=== PATIENT | female | born 1940 | race Caucasian/White ===

== ENCOUNTER 2024-06-21 22:05 | Inpatient (IN) | payer MEDICARE, BC ==
--- NOTE | 2024-06-21 22:20 | ED ---
Chest Pain HPI - General Chief Complaint: Chest Pain Stated Complaint: NSTEMI Time Seen by Provider: 06/21/24 22:14 Source: patient, EMS Mode of arrival: EMS - History of Present Illness Initial Comments: This patient is an 83-year-old woman transferred here from [facility]. The patient had gone there to have evaluation for chest pain that she states started around 8 AM. She states that it was not related to any exertion she was still in bed. She states the pain radiates to the left shoulder. She denied any associated symptoms. She went to the other facility and was found to have elevated troponin and transferred here to have further evaluation. The patient states that the symptoms have improved since receiving the medication that they had given there. MD Complaint: chest pain Onset/Timin -: hour(s) Onset: during rest Pain Location: left chest Pain Radiation: LUE Severity: moderate Quality: aching Consistency: now resolved Improves With: medication-other Worsens With: nothing Treatments Prior to Arrival: aspirin, oxygen, other - Related Data Home Medications Medication Instructions Recorded Confirmed ALPRAZolam [Xanax] 0.5 mg PO BID PRN 06/22/24 06/22/24 Alendronate Sodium 70 mg PO WEEKLY 06/22/24 06/22/24 Azelastine HCl [Astelin Nasal 1 spr EA NOSTRIL BID 06/22/24 06/22/24 [place]] Betamethasone Valerate [Luxiq 0.1%] 1 applic TOPICAL BID PRN 06/22/24 06/22/24 Citalopram Hydrobromide [CeleXA] 20 mg PO DAILY 06/22/24 06/22/24 Cyanocobalamin (Vitamin B-12) 1,000 mcg PO HS 06/22/24 06/22/24 [Vitamin B-12] Donepezil [Aricept] 5 mg PO HS 06/22/24 06/22/24 Furosemide [Lasix] 20 mg PO BID 06/22/24 06/22/24 HYDROcodone/APAP 5-325MG [[place] 1 tab PO TID PRN 06/22/24 06/22/24 5-325] Montelukast [Singulair] 10 mg PO DAILY 06/22/24 06/22/24 Omeprazole [PriLOSEC] 20 mg PO BID 06/22/24 06/22/24 Potassium Chloride ER [K-Dur 10] 10 meq PO TID 06/22/24 06/22/24 Vitamin D(Unknown Dose) 1 tab PO DAILY 06/22/24 06/22/24 Warfarin [Coumadin] 1 mg PO HS 06/22/24 06/22/24 Warfarin [Coumadin] 3 mg PO HS 06/22/24 06/22/24 Zolpidem [Ambien] 10 mg PO HS 06/22/24 06/22/24 carvediloL [Coreg] 3.125 mg PO BID 06/22/24 06/22/24 traMADol HCL 50 mg PO TID PRN 06/22/24 06/22/24 Previous Rx's Medication Instructions Recorded Loperamide [Imodium] 2 mg PO QID PRN cap 06/24/24 Allergies Allergy/AdvReac Type Severity Reaction Status Date / Time amoxicillin AdvReac Nausea & Verified 06/22/24 07:21 Vomiting aspirin AdvReac Itching Verified 06/22/24 07:21 butalbital AdvReac Headache Verified 06/22/24 07:21 cefaclor AdvReac family Verified 06/22/24 07:21 history cephalexin AdvReac Unknown Verified 06/22/24 07:21 clindamycin [From Cleocin] AdvReac "made me Verified 06/22/24 07:21 flatline" codeine AdvReac Nausea & Verified 06/22/24 07:21 Vomiting doxycycline AdvReac Unknown Verified 06/22/24 07:21 lisinopril AdvReac leg cramps Verified 06/22/24 07:21 morphine AdvReac Hallucinati Verified 06/22/24 07:21 ons prednisone AdvReac Unknown Verified 06/22/24 07:21 spironolactone AdvReac Nausea & Verified 06/22/24 07:21 [From Aldactone] Vomiting Sulfa (Sulfonamide AdvReac Nausea & Verified 06/22/24 07:21 Antibiotics) Vomiting potassium tabs AdvReac takes at Uncoded 06/22/24 07:32 home, on patient's allergy list Review of Systems ROS Statement: Those systems with pertinent positive or pertinent negative responses have been documented in the HPI. ROS Other: All systems not noted in ROS Statement are negative. Constitutional: Denies: fever, chills Respiratory: Denies: cough, dyspnea Cardiovascular: Reports: chest pain. Denies: palpitations, orthopnea, edema, syncope Gastrointestinal: Denies: abdominal pain, nausea, vomiting Genitourinary: Denies: dysuria, hematuria Musculoskeletal: Denies: back pain Skin: Denies: rash Neurological: Denies: headache, weakness, numbness EKG Findings - EKG Results: EKG: interpreted by ERMD, sinus rhythm (Rate 72 bpm) - Blocks, [place], Hypertrophy, ST Abn: AV and intraventricular conduction: left bundle branch block (fixed/intermittent, complete/incomplete) QRS axis and voltage: left axis deviation (-30 to -90) Past Medical History Past Medical History: Chest Pain / Angina, CVA/TIA, Deep Vein Thrombosis (DVT), Hypertension History of Any Multi-Drug Resistant Organisms: None Reported Additional Past Surgical History / Comment(s): Pace maker/defibulator placed 12/03/2011, back surgery 02/2022 Past Psychological History: No Psychological Hx Reported Smoking Status: Former smoker Past Alcohol Use History: None Reported Past Drug Use History: None Reported General Exam General appearance: alert, in no apparent distress Head exam: Present: atraumatic, normocephalic Eye exam: Present: normal appearance. Absent: scleral icterus, conjunctival injection Neck exam: Present: normal inspection Respiratory exam: Present: normal lung sounds bilaterally. Absent: respiratory distress, wheezes, rales, rhonchi, stridor, accessory muscle use Cardiovascular Exam: Present: regular rate, normal rhythm, normal heart sounds. Absent: systolic murmur, diastolic murmur, rubs, gallop GI/Abdominal exam: Present: soft. Absent: distended, tenderness, guarding, rebound, rigid, mass Extremities exam: Present: normal inspection, normal capillary refill. Absent: pedal edema, calf tenderness Back exam: Present: normal inspection. Absent: CVA tenderness (R), CVA tenderness (L) Neurological exam: Present: alert Skin exam: Present: warm, dry, intact, normal color. Absent: rash Course Vital Signs 06/21/24 06/21/24 06/22/24 22:07 23:16 00:08 Temperature 98.3 F 98.2 F Pulse Rate 77 74 74 Respiratory 18 18 18 Rate Blood Pressure 125/72 122/66 136/64 O2 Sat by Pulse 98 97 95 Oximetry 06/22/24 06/22/24 06/22/24 02:43 03:54 06:44 Temperature Pulse Rate 66 67 58 L Respiratory 15 20 19 Rate Blood Pressure 105/50 110/61 92/60 O2 Sat by Pulse 97 98 95 Oximetry 06/22/24 06/22/24 06/22/24 08:27 13:00 15:00 Temperature 98.4 F Pulse Rate 86 74 77 Respiratory 18 18 18 Rate Blood Pressure 117/58 109/58 108/60 O2 Sat by Pulse 98 98 Oximetry 06/22/24 06/23/24 06/23/24 15:23 00:38 02:30 Temperature Pulse Rate 93 100 92 Respiratory 18 16 16 Rate Blood Pressure 121/80 128/72 107/80 O2 Sat by Pulse 99 97 93 L Oximetry 06/23/24 06/23/24 06/23/24 06:30 07:56 11:04 Temperature Pulse Rate 78 64 72 Respiratory 16 16 18 Rate Blood Pressure 107/80 107/80 107/80 O2 Sat by Pulse 97 96 95 Oximetry 06/23/24 06/23/24 12:45 15:06 Temperature Pulse Rate 72 77 Respiratory 16 18 Rate Blood Pressure 108/90 100/58 O2 Sat by Pulse 98 97 Oximetry Chest Pain MDM - MDM Was pt. sent in by a medical professional or institution ([facility], WELLNESS RN, urgent care, hospital, or [place] health care facility...) When possible be specific @ -Yes the patient is transferred from outside hospital to have cardiology evaluation and treatment Did you speak to anyone other than the patient for history (EMS, parent, family, police, friend...)? What history was obtained from this source @ -[EMS contributed to history Did you review nursing and triage notes (agree or disagree)? Why? @ -[I reviewed and agree with nursing and triage notes] Were old charts reviewed (outside hosp., previous admission, EMS record, old EKG, old radiological studies, urgent care reports/EKG's, [place] health care facility records)? Report findings @ -[Transfer charts were reviewed] Differential Diagnosis (chest pain, altered mental status, abdominal pain women, abdominal pain men, vaginal bleeding, weakness, fever, dyspnea, syncope, headache, dizziness, GI bleed, back pain, seizure, CVA, palpatations, mental health, musculoskeletal)? @ -[Differential Chest Pain: Stable Angina, Unstable Angina, STEMI, NSTEMI Aortic Dissection, Pneumothorax, Musculoskeletal, Esophageal Spasm GERD, Cholecystitis, Pancreatitis, Zoster, this is not meant to be an all-inclusive list. EKG interpreted by me (3pts min.). @ -[I interpreted as above] X-rays interpreted by me (1pt min.). @ -[None done] CT interpreted by me (1pt min.). @ -[None done] U/S interpreted by me (1pt. min.). @ -[None done] What testing was considered but not performed or refused? (CT, X-rays, U/S, labs)? Why? @ -[None] What meds were considered but not given or refused? Why? @ -[None] Did you discuss the management of the patient with other professionals (professionals i.e. , PA, WELLNESS RN, lab, RT, psych nurse, social science professor, director internal control, teacher, gifts officer, case supervisor)? Give summary @ -[Case discussed with admitting physician and also with cardiology and treatment recommendations incorporated Was smoking cessation discussed for >3mins.? @ -[No] Was critical care preformed (if so, how long)? @ -[Yes, 30 minutes Were there social determinants of health that impacted care today? How? (Homelessness, low income, unemployed, alcoholism, drug addiction, transportation, low edu. Level, literacy, decrease access to med. care, assisted, rehab)? @ -[No] Was there de-escalation of care discussed even if they declined (Discuss DNR or withdrawal of care, Hospice)? DNR status @ -[No] What co-morbidities impacted this encounter? (DM, HTN, Smoking, COPD, CAD, Cancer, CVA, ARF, Chemo, Hep., AIDS, mental health diagnosis, sleep apnea, morbid obesity)? @ -[None] Was patient admitted / discharged? Hospital course, mention meds given and route, prescriptions, significant lab abnormalities, going to OR and other pertinent info. @ -[Patient is an 83-year-old woman transferred here from the outside hospital to have further cardiology care. Case discussed with on-call cardiology and with admitting physician and treatment recommendations are incorporated. The patient's symptoms resolving and troponins remain flat Undiagnosed new problem with uncertain prognosis? @ -[No] Drug Therapy requiring intensive monitoring for toxicity (Heparin, Nitro, Insulin, Cardizem)? @ -[Heparin Were any procedures done? @ -[No] Diagnosis/symptom? @ -[Acute NSTEMI Acute, or Chronic, or Acute on Chronic? @ -[Acute Uncomplicated (without systemic symptoms) or Complicated (systemic symptoms)? @ -[Uncomplicated Side effects of treatment? @ -[No] Exacerbation, Progression, or Severe Exacerbation? @ -[No] Poses a threat to life or bodily function? How? (Chest pain, [place], [place], pneumonia, PE, COPD, DKA, ARF, appy, cholecystitis, CVA, Diverticulitis, Homicidal, Suicidal, threat to staff... and all critical care pts) @ -Yes, requires cardiology evaluation and probable heart cath All treatments are based on ideal body weight as in ED triage Disposition Clinical Impression: NSTEMI (non-ST elevated myocardial infarction) Disposition: ADMITTED IP TO THIS HOSP Condition: Stable Is patient prescribed a controlled substance at d/c from ED?: No
[2024-06-21] MEDS ORDERED: NITROGLYCERIN SL TABS 0.4 MG TAB SUBLINGUAL PRN (22:36)
[2024-06-21] MEDS: HEPARIN SOD,PORK IN 0.45% NACL 25,000 UNIT in 0.45% NACL 1 250ML.BAG IV SCH (22:42)
[2024-06-21 23:08] LABS: Basophils % (A) 1 %; Eosinophils # (A) 0.4 k/uL (0-0.7); Eosinophils % (A) 5 %; HCT 39.1 % (34.0-46.0); HGB 12.6 gm/dL (11.4-16.0); Lymphocytes # (A) 2.1 k/uL (1.0-4.8); Lymphocytes % (A) 29 %; MCH 32.1 pg (25.0-35.0); MCHC 32.3 g/dL (31.0-37.0); MCV 99.5 fL (80.0-100.0); Monocytes # (A) 0.6 k/uL (0-1.0); Monocytes % (A) 7 %; Neutrophils # (A) 4.2 k/uL (1.3-7.7); Neutrophils % (A) 56 %; Platelet Count 375 k/uL (150-450); RBC 3.93 m/uL (3.80-5.40); WBC 7.4 k/uL (3.8-10.6)
[2024-06-21] MEDS: ZOLPIDEM 5 MG TAB PO STA (23:14)
[2024-06-21 23:17] LABS: African American GFR (CKD) 46 (>60 ml/min/1.73 sqM); Anion Gap 8 mmol/L; Blood Urea Nitrogen 15 mg/dL (7-17); Calcium 9.4 mg/dL (8.4-10.2); Carbon Dioxide 23 mmol/L (22-30); Chloride 106 mmol/L (98-107); Glucose 116 mg/dL (74-99); Magnesium 1.7 mg/dL (1.6-2.3); Non-African American GFR(CKD) 40 (>60 ml/min/1.73 sqM); Potassium 4.1 mmol/L (3.5-5.1); Sodium 137 mmol/L (137-145)
[2024-06-22 07:10] LABS: Mean Platelet Volume 8.3; Platelet Count 361 k/uL (150-450)
--- NOTE | 2024-06-22 08:29 | P.CRDCN ---
History of Present Illness Consult date: 06/22/24 Reason for Consult (text): NSTEMI History of present illness: This is an 83-year-old female patient of Dr.Gassan Ortega in [place] with past medical history of DVT on Coumadin, status post pacemaker implantation, hypertension, dementia, remote history of tobacco use. We have been asked to evaluate the patient for NSTEMI. Patient states that she has had these brief episodes of chest pain that only last for few seconds to a minute but seem to be happening more frequently. When the pain is severe it is a 7/10. She states that her made her come into the emergency center in [place] to be checked. Patient had an elevated troponin of 406 with normal range less than 51 and thus patient was transferred to [facility] for further evaluation. Other lab work performed at [facility] was BUN 14, creatinine 1.58. EKG was a sinus rhythm with a left bundle branch block. Chest x-ray was negative for acute findings. Patient was started on a heparin drip which has been continued. Patient denies having a previous stress test. She believes she had a stroke about 10 years ago. Patient gives history that her pacemaker is at end-of-life. This was placed 10 years ago and she was post to have the generator changed on this week. -EKG: Sinus rhythm with left bundle branch block -Laboratory studies: BUN 15 and creatinine 1.26. Troponins 0.448 and 0.451. -Home cardiac medications: Lasix 20 mg twice daily, potassium 10 mill equivalents 3 times daily, Coreg 3.125 mg twice daily, warfarin 3 mg daily. - Review Of Systems: At the time of my exam: CONSTITUTIONAL: Denies fever or chills. HEENT: Denies blurred vision, vision changes, or eye pain. Denies hemoptysis CARDIOVASCULAR: Denies chest pain. Denies orthopnea. Denies PND. Denies palpitations RESPIRATORY: Denies shortness of breath. GASTROINTESTINAL: Denies abdominal pain. Denies nausea or vomiting. HEMATOLOGIC: Denies bleeding disorders. GENITOURINARY: Denies any blood in urine. SKIN: Denies puritis. Denies rash. Physical examination: Gen: This is a 83-year-old female in no acute distress VS: reviewed HEENT: Head is atraumatic, normocephalic. Pupils equal, round. Sclerae is anicteric. NECK: Supple. No JVD. LUNGS: Clear to auscultation. No wheezes or rhonchi. No intercostal retractions. HEART: Regular rate and rhythm. No murmur. Pacemaker to left upper anterior chest wall with tenderness which she states has been chronic. ABDOMEN: Soft No tenderness. EXTREMITIES: No pedal edema. No calf tenderness. NEUROLOGICAL: Patient is awake, alert and oriented x3. Assessment: NSTEMI Acute kidney injury, improving History of pacemaker implantation at reported end-of-life battery History of DVT on Coumadin Hypertension Plan: Resume patient's home cardiac medications Continue heparin drip Interrogate pacemaker Obtain 2-D echocardiogram and Doppler study to assess cardiac structure and function Tentatively schedule patient for cardiac catheterization tomorrow with Dr. 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 Nurse practitioner note has been reviewed, I agree with documented findings and plan of care. Patient was seen and examined. Past Medical History Past Medical History: Chest Pain / Angina, CVA/TIA, Deep Vein Thrombosis (DVT), Hypertension History of Any Multi-Drug Resistant Organisms: None Reported Additional Past Surgical History / Comment(s): Pace maker/defibulator placed 12/03/2011, back surgery 02/2022 Past Psychological History: No Psychological Hx Reported Smoking Status: Former smoker Past Alcohol Use History: None Reported Past Drug Use History: None Reported Medications and Allergies Home Medications Medication Instructions Recorded Confirmed Type ALPRAZolam [Xanax] 0.5 mg PO BID PRN 06/22/24 06/22/24 History Alendronate Sodium 70 mg PO WEEKLY 06/22/24 06/22/24 History Azelastine HCl [Astelin Nasal 1 spr EA NOSTRIL BID 06/22/24 06/22/24 History [place]] Betamethasone Valerate [Luxiq 0.1%] 1 applic TOPICAL BID PRN 06/22/24 06/22/24 History Citalopram Hydrobromide [CeleXA] 20 mg PO DAILY 06/22/24 06/22/24 History Cyanocobalamin (Vitamin B-12) 1,000 mcg PO HS 06/22/24 06/22/24 History [Vitamin B-12] Donepezil [Aricept] 5 mg PO HS 06/22/24 06/22/24 History Furosemide [Lasix] 20 mg PO BID 06/22/24 06/22/24 History HYDROcodone/APAP 5-325MG [[place] 1 tab PO TID PRN 06/22/24 06/22/24 History 5-325] Montelukast [Singulair] 10 mg PO DAILY 06/22/24 06/22/24 History Omeprazole [PriLOSEC] 20 mg PO BID 06/22/24 06/22/24 History Potassium Chloride ER [K-Dur 10] 10 meq PO TID 06/22/24 06/22/24 History Vitamin D(Unknown Dose) 1 tab PO DAILY 06/22/24 06/22/24 History Warfarin [Coumadin] 1 mg PO HS 06/22/24 06/22/24 History Warfarin [Coumadin] 3 mg PO HS 06/22/24 06/22/24 History Zolpidem [Ambien] 10 mg PO HS 06/22/24 06/22/24 History carvediloL [Coreg] 3.125 mg PO BID 06/22/24 06/22/24 History traMADol HCL 50 mg PO TID PRN 06/22/24 06/22/24 History Allergies Allergy/AdvReac Type Severity Reaction Status Date / Time amoxicillin AdvReac Nausea & Verified 06/22/24 07:21 Vomiting aspirin AdvReac Itching Verified 06/22/24 07:21 butalbital AdvReac Headache Verified 06/22/24 07:21 cefaclor AdvReac family Verified 06/22/24 07:21 history cephalexin AdvReac Unknown Verified 06/22/24 07:21 clindamycin [From Cleocin] AdvReac "made me Verified 06/22/24 07:21 flatline" codeine AdvReac Nausea & Verified 06/22/24 07:21 Vomiting doxycycline AdvReac Unknown Verified 06/22/24 07:21 lisinopril AdvReac leg cramps Verified 06/22/24 07:21 morphine AdvReac Hallucinati Verified 06/22/24 07:21 ons prednisone AdvReac Unknown Verified 06/22/24 07:21 spironolactone AdvReac Nausea & Verified 06/22/24 07:21 [From Aldactone] Vomiting Sulfa (Sulfonamide AdvReac Nausea & Verified 06/22/24 07:21 Antibiotics) Vomiting potassium tabs AdvReac takes at Uncoded 06/22/24 07:32 home, on patient's allergy list Physical Exam Vitals: Vital Signs Temp Pulse Resp BP Pulse Ox 06/22/24 06:44 58 L 19 92/60 95 06/22/24 03:54 67 20 110/61 98 06/22/24 02:43 66 15 105/50 97 06/22/24 00:08 98.2 F 74 18 136/64 95 06/21/24 23:16 74 18 122/66 97 06/21/24 22:07 98.3 F 77 18 125/72 98 Intake and Output 06/21/24 06/22/24 06/22/24 22:59 06:59 14:59 Intake Total 34.22 Balance 34.22 Intake: Intake, IV Titration 34.22 Amount Heparin Sod,Pork in 0.45% 34.22 NaCl 25,000 unit In 0.45 % NaCl 1 250ml.bag @ 8.48 UNITS/KG/HR 10.006 mls/ hr IV [facility] Rx#: [id number] Other: Weight 118 kg Results 06/22/24 06:18 06/21/24 22:52 Cardiac Enzymes 06/21/24 06/22/24 Range/Units 22:52 01:30 Troponin I 0.448 H* 0.451 H* (0.000-0.034) ng/mL Coagulation 06/21/24 06/22/24 Range/Units 22:51 01:30 APTT 99.0 H 196.2 H* (22.0-30.0) sec CBC 06/21/24 06/22/24 Range/Units 22:52 06:18 WBC 7.4 (3.8-10.6) k/uL RBC 3.93 (3.80-5.40) m/uL Hgb 12.6 (11.4-16.0) gm/dL Hct 39.1 (34.0-46.0) % Plt Count 375 361 (150-450) k/uL Comprehensive Metabolic Panel 06/21/24 Range/Units 22:52 Sodium 137 (137-145) mmol/L Potassium 4.1 (3.5-5.1) mmol/L Chloride 106 (98-107) mmol/L Carbon Dioxide 23 (22-30) mmol/L BUN 15 (7-17) mg/dL Creatinine 1.26 H (0.52-1.04) mg/dL Glucose 116 H (74-99) mg/dL Calcium 9.4 (8.4-10.2) mg/dL Current Medications Generic Name Dose Route Start Last Admin Trade Name Freq PRN Reason Stop Dose Admin Heparin Sodium/Sodium Chloride 250 mls @ 10.006 mls/hr 06/21/24 22:45 06/22/24 02:28 25,000 unit/ Sodium Chloride IV 8 units/kg/hr .Q24H [facility] 9.44 mls/hr Titration Protocol 8.48 UNITS/KG/HR Nitroglycerin 0.4 mg 06/21/24 22:36 Nitroglycerin Sl Tabs 0.4 Mg Tab SUBLINGUAL Q5M PRN Chest Pain Intake and Output 06/21/24 06/22/24 06/22/24 22:59 06:59 14:59 Intake Total 34.22 Balance 34.22 Intake: Intake, IV Titration 34.22 Amount Heparin Sod,Pork in 0.45% 34.22 NaCl 25,000 unit In 0.45 % NaCl 1 250ml.bag @ 8.48 UNITS/KG/HR 10.006 mls/ hr IV .Q24[facility] Rx#: [id number] Other: Weight 118 kg 06/22/24 06:18 06/21/24 22:52
[2024-06-22] MEDS: carvediloL 3.125 MG TAB PO SCH (08:30)
[2024-06-22 09:09] LABS: Chol/HDL Ratio 3.02 Ratio; VLDL Calculation 14.08 mg/dL (5.00-40.00)
[2024-06-22] MEDS ORDERED: HYDROcodone/APAP 5-325MG 1 EACH TAB PO PRN (10:06)
[2024-06-22] MEDS ORDERED: ONDANSETRON 4 MG/2 ML VIAL IVP PRN (10:09)
[2024-06-22 10:48] LABS: African American GFR (CKD) 44 (>60 ml/min/1.73 sqM); Anion Gap 10 mmol/L; Blood Urea Nitrogen 15 mg/dL (7-17); Carbon Dioxide 23 mmol/L (22-30); Chloride 106 mmol/L (98-107); Glucose 102 mg/dL (74-99); Non-African American GFR(CKD) 38 (>60 ml/min/1.73 sqM); Sodium 139 mmol/L (137-145)
[2024-06-22 10:50] LABS: Prothrombin Time 20.5 sec (10.0-12.5)
[2024-06-22] MEDS: CITALOPRAM HYDROBROMIDE 20 MG TAB PO SCH (13:02)
--- NOTE | 2024-06-22 14:10 | P.HPIM ---
History of Present Illness H&P Date: 06/22/24 This is a pleasant 83-year-old female medical history significant for CVA, DVT, hypertension, pacemaker defibrillator implanted in November 2011, Former smoker. Comes into the hospital with complaints of chest pain that hat been per the patient coming and going for the last 3 to 4 months. Patient states the pain is not associated with food and she is not having any shortness of breath, dizziness or lightheadedness. Currently she is chest pain free. Patient was transferred down from [facility]. She follows with Dr. Pierce on an outpatient basis, is supposed to have a generator change in the next 2 weeks. While at [facility] patient did have a positive troponin level and was transferred for further cardiac evaluation. Initial EKG reveals sinus rhythm. Patient does have a left bundle branch block. Heart rate of 72. CBC is completely unremarkable, sodium level of 137 BUN of 15 creatinine 1.26, lactic acid of 2.1 patient does have elevation of her troponin level 0.448 and 0.451. lipid panel unremarkable. Patient was started on IV heparin protocol and cardiology consultation in place. She does take warfarin on any outpatient basis for history of DVT. Patient is a poor historian. REVIEW OF SYSTEMS: CONSTITUTIONAL: No fever, no malaise, no fatigue. HEENT: No recent visual problems or hearing problems. Denied any sore throat. CARDIOVASCULAR: No chest pain, orthopnea, PND, no palpitations, no syncope. PULMONARY: No shortness of breath, no cough, no hemoptysis. GASTROINTESTINAL: No diarrhea, no nausea, no vomiting, no abdominal pain. NEUROLOGICAL: No headaches, no weakness, no numbness. HEMATOLOGICAL: Denies any bleeding or petechiae. GENITOURINARY: Denies any burning micturition, frequency, or urgency. MUSCULOSKELETAL/RHEUMATOLOGICAL: Denies any joint pain, swelling, or any muscle pain. ENDOCRINE: Denies any polyuria or polydipsia. The rest of the 14-point review of systems is negative. PHYSICAL EXAMINATION: GENERAL: The patient is alert and oriented x3, not in any acute distress. Well developed, well nourished. HEENT: Pupils are round and equally reacting to light. EOMI. No scleral icterus. No conjunctival pallor. Normocephalic, atraumatic. No pharyngeal erythema. No thyromegaly. CARDIOVASCULAR: S1 and S2 present. No murmurs, rubs, or gallops. PULMONARY: Chest is clear to auscultation, no wheezing or crackles. ABDOMEN: Soft, nontender, nondistended, normoactive bowel sounds. No palpable organomegaly. MUSCULOSKELETAL: No joint swelling or deformity. EXTREMITIES: No cyanosis, clubbing, or pedal edema. NEUROLOGICAL: Gross neurological examination did not reveal any focal deficits. SKIN: No rashes. Assessment and plan Acute chest pain Non-ST elevation DE with troponin elevation Mild acute kidney injury History of hypertension History of DVT anticoagulated with warfarin on an outpatient basis which is cur rently held patient is continued on IV heparin at this time History of pacemaker/AICD History of stroke in the past GI prophylaxis DVT prophylaxis IV heparin Plan Cardiac consultation pending reports from outside cardiology Continue IV heparin, continue holding warfarin Home medications have been resumed Echocardiogram ordered and pending Monitor renal function. Start normal saline at 75 mls/hr Check bladder scan The impression and plan of care has been dictated by Ivania Hyatt, Nurse Practitioner as directed. Dr. Vic MD I have performed a history and physical examination and medical decision making of this patient, discussed the same with the dictator, and agree with the dictators assessment and plan as written, documented as a scribe. Based on total visit time, I have performed more than 50% of this visit. Past Medical History Past Medical History: Chest Pain / Angina, CVA/TIA, Deep Vein Thrombosis (DVT), Hypertension History of Any Multi-Drug Resistant Organisms: None Reported Additional Past Surgical History / Comment(s): Pace maker/defibulator placed 12/03/2011, back surgery 02/2022 Past Psychological History: No Psychological Hx Reported Smoking Status: Former smoker Past Alcohol Use History: None Reported Past Drug Use History: None Reported Medications and Allergies Home Medications Medication Instructions Recorded Confirmed Type ALPRAZolam [Xanax] 0.5 mg PO BID PRN 06/22/24 06/22/24 History Alendronate Sodium 70 mg PO WEEKLY 06/22/24 06/22/24 History Azelastine HCl [Astelin Nasal 1 spr EA NOSTRIL BID 06/22/24 06/22/24 History Berthold] Betamethasone Valerate [Luxiq 0.1%] 1 applic TOPICAL BID PRN 06/22/24 06/22/24 History Citalopram Hydrobromide [CeleXA] 20 mg PO DAILY 06/22/24 06/22/24 History Cyanocobalamin (Vitamin B-12) 1,000 mcg PO HS 06/22/24 06/22/24 History [Vitamin B-12] Donepezil [Aricept] 5 mg PO HS 06/22/24 06/22/24 History Furosemide [Lasix] 20 mg PO BID 06/22/24 06/22/24 History HYDROcodone/APAP 5-325MG [[place] 1 tab PO TID PRN 06/22/24 06/22/24 History 5-325] Montelukast [Singulair] 10 mg PO DAILY 06/22/24 06/22/24 History Omeprazole [PriLOSEC] 20 mg PO BID 06/22/24 06/22/24 History Potassium Chloride ER [K-Dur 10] 10 meq PO TID 06/22/24 06/22/24 History Vitamin D(Unknown Dose) 1 tab PO DAILY 06/22/24 06/22/24 History Warfarin [Coumadin] 1 mg PO HS 06/22/24 06/22/24 History Warfarin [Coumadin] 3 mg PO HS 06/22/24 06/22/24 History Zolpidem [Ambien] 10 mg PO HS 06/22/24 06/22/24 History carvediloL [Coreg] 3.125 mg PO BID 06/22/24 06/22/24 History traMADol HCL 50 mg PO TID PRN 06/22/24 06/22/24 History Allergies Allergy/AdvReac Type Severity Reaction Status Date / Time amoxicillin AdvReac Nausea & Verified 06/22/24 07:21 Vomiting aspirin AdvReac Itching Verified 06/22/24 07:21 butalbital AdvReac Headache Verified 06/22/24 07:21 cefaclor AdvReac family Verified 06/22/24 07:21 history cephalexin AdvReac Unknown Verified 06/22/24 07:21 clindamycin [From Cleocin] AdvReac "made me Verified 06/22/24 07:21 flatline" codeine AdvReac Nausea & Verified 06/22/24 07:21 Vomiting doxycycline AdvReac Unknown Verified 06/22/24 07:21 lisinopril AdvReac leg cramps Verified 06/22/24 07:21 morphine AdvReac Hallucinati Verified 06/22/24 07:21 ons prednisone AdvReac Unknown Verified 06/22/24 07:21 spironolactone AdvReac Nausea & Verified 06/22/24 07:21 [From Aldactone] Vomiting Sulfa (Sulfonamide AdvReac Nausea & Verified 06/22/24 07:21 Antibiotics) Vomiting potassium tabs AdvReac takes at Uncoded 06/22/24 07:32 home, on patient's allergy list Physical Exam Vitals: Vital Signs Temp Pulse Resp BP Pulse Ox 06/22/24 08:27 98.4 F 86 18 117/58 98 06/22/24 06:44 58 L 19 92/60 95 06/22/24 03:54 67 20 110/61 98 06/22/24 02:43 66 15 105/50 97 06/22/24 00:08 98.2 F 74 18 136/64 95 06/21/24 23:16 74 18 122/66 97 06/21/24 22:07 98.3 F 77 18 125/72 98 Intake and Output 06/21/24 06/22/24 06/22/24 22:59 06:59 14:59 Intake Total 34.22 64.664 Balance 34.22 64.664 Intake: Intake, IV Titration 34.22 64.664 Amount Heparin Sod,Pork in 0.45% 34.22 64.664 NaCl 25,000 unit In 0.45 % NaCl 1 250ml.bag @ 8.48 UNITS/KG/HR 10.006 mls/ hr IV .Q24H [facility] Rx#: [id number] Other: Weight 118 kg Results CBC & Chem 7: 06/22/24 06:18 06/22/24 01:30 Labs: Abnormal Lab Results - Last 24 Hours (Table) 06/21/24 06/21/24 06/21/24 Range/Units 22:51 22:52 22:52 APTT 99.0 H (22.0-30.0) sec Creatinine 1.26 H (0.52-1.04) mg/dL Glucose 116 H (74-99) mg/dL Plasma Lactic Acid Jeffrey (0.7-2.0) mmol/L Troponin I 0.448 H* (0.000-0.034) ng/mL 06/21/24 06/22/24 06/22/24 Range/Units 22:52 01:30 01:30 APTT 196.2 H* (22.0-30.0) sec Creatinine (0.52-1.04) mg/dL Glucose (74-99) mg/dL Plasma Lactic Acid Jeffrey 2.1 H* (0.7-2.0) mmol/L Troponin I 0.451 H* (0.000-0.034) ng/mL 06/22/24 Range/Units 08:31 APTT 195.5 H* (22.0-30.0) sec Creatinine (0.52-1.04) mg/dL Glucose (74-99) mg/dL Plasma Lactic Acid Jeffrey (0.7-2.0) mmol/L Troponin I (0.000-0.034) ng/mL Assessment and Plan Time with Patient: Greater than 30
[2024-06-22] MEDS: SODIUM CHLORIDE 0.9% 1,000 ML IV SCH (15:11)
[2024-06-22] MEDS: DONEPEZIL 5 MG TAB PO SCH (21:30)
[2024-06-22] MEDS: PANTOPRAZOLE 40 MG TABLET PO SCH (21:30)
[2024-06-23] MEDS: ALPRAZolam 0.5 MG TAB PO PRN (00:47)
[2024-06-23] MEDS: ACETAMINOPHEN TAB 325 MG TAB PO PRN (06:56)
[2024-06-23 06:57] LABS: Mean Platelet Volume 8.9; Platelet Count 358 k/uL (150-450)
[2024-06-23 07:10] LABS: INR 1.4 (<1.2); Prothrombin Time 14.8 sec (10.0-12.5)
[2024-06-23 07:35] LABS: African American GFR (CKD) 52 (>60 ml/min/1.73 sqM); Anion Gap 6 mmol/L; Blood Urea Nitrogen 15 mg/dL (7-17); Calcium 8.9 mg/dL (8.4-10.2); Carbon Dioxide 24 mmol/L (22-30); Chloride 108 mmol/L (98-107); Glucose 89 mg/dL (74-99); Non-African American GFR(CKD) 46 (>60 ml/min/1.73 sqM); Sodium 138 mmol/L (137-145)
[2024-06-23] MEDS: MONTELUKAST 10 MG TAB PO SCH (08:15)
[2024-06-23] MEDS ORDERED: ALPRAZolam 0.25 MG TAB PO PRN (09:48)
[2024-06-23] MEDS ORDERED: NITROGLYCERIN SL TABS 0.4 MG TAB SUBLINGUAL PRN (09:48)
--- NOTE | 2024-06-23 09:48 | P.PN ---
Subjective Progress Note Date: 06/23/24 Reason for Consult (text): NSTEMI History of present illness: This is an 83-year-old female patient of Dr.Gassan Ortega in [place] with past medical history of DVT on Coumadin, status post pacemaker implantation, hypertension, dementia, remote history of tobacco use. We have been asked to evaluate the patient for NSTEMI. Patient states that she has had these brief episodes of chest pain that only last for few seconds to a minute but seem to be happening more frequently. When the pain is severe it is a 7/10. She states that her made her come into the emergency center in [place] to be checked. Patient had an elevated troponin of 406 with normal range less than 51 and thus patient was transferred to [facility] for further evaluation. Other lab work performed at [facility] was BUN 14, creatinine 1.58. EKG was a sinus rhythm with a left bundle branch block. Chest x-ray was negative for acute findings. Patient was started on a heparin drip which has been continued. Patient denies having a previous stress test. She believes she had a stroke about 10 years ago. Patient gives history that her pacemaker is at end-of-life. This was placed 10 years ago and she was post to have the generator changed on this week. -EKG: Sinus rhythm with left bundle branch block -Laboratory studies: BUN 15 and creatinine 1.26. Troponins 0.448 and 0.451. -Home cardiac medications: Lasix 20 mg twice daily, potassium 10 mill equivalents 3 times daily, Coreg 3.125 mg twice daily, warfarin 3 mg daily. Records from patient's furnace reliner have been obtained and reviewed. Patient has history of dilated nonischemic cardiomyopathy, heart failure with reduced EF of 20% in September 2022, history of CRTD [employer] implant with subsequent translocation to submuscular location, history of cardiopulmonary arrest requiring CPR with recovery, history of upper and lower extremity DVT for which she is on long-term Coumadin. History of moderate pulmonary hypertension and chronic kidney disease stage IIIb. Apparently patient was supposed to have her battery change done at [facility] last week but because her INR was 2.7, the procedure was rescheduled. 06/23 Patient is seen and examined in the emergency center waiting for a bed on the cardiac stepdown unit. Records from her furnace reliner office have been reviewed. Patient has been kept n.p.o. for possible cardiac catheterization today with Dr. Garcia. ICD interrogation apparently found no battery life. Patient remains on a heparin drip. Blood pressure 107/80, heart rate 78, pulse ox 97% on room air. Repeat blood work reveals INR of 1.4, sodium 138, BUN 15, creatinine 1.13 and potassium 4. Patient denies chest pain. Dr Garcia discussed with patient and her daughter recommendations for cardiac cath and they are agreeable to move forward with this today. Echocardiogram is pending. Physical examination: Gen: This is a 83-year-old female in no acute distress VS: reviewed HEENT: Head is atraumatic, normocephalic. Pupils equal, round. Sclerae is anicteric. NECK: Supple. No JVD. LUNGS: Clear to auscultation. No wheezes or rhonchi. No intercostal retractions. HEART: Regular rate and rhythm. No murmur. Pacemaker to left upper anterior chest wall with tenderness which she states has been chronic. ABDOMEN: Soft No tenderness. EXTREMITIES: No pedal edema. No calf tenderness. NEUROLOGICAL: Patient is awake, alert and oriented x3. Assessment: NSTEMI Acute kidney injury, improving History of ICD implantation at reported end-of-life battery History of upper and lower extremity DVTs on Coumadin Hypertension Dilated nonischemic cardiomyopathy Chronic systolic heart failure with known EF of 20% in September 2022 Plan: Continue patient's home cardiac medications Continue heparin drip Schedule patient for cardiac catheterization today with Dr. Garcia. Obtain 2-D echocardiogram and Doppler study to assess cardiac structure and function Tentatively schedule patient for cardiac catheterization tomorrow with Dr. Garcia Further recommendations to follow based upon clinical course Nurse practitioner note has been reviewed, I agree with documented findings and plan of care. Patient was seen and examined. Objective - Vital Signs Vital signs: Vital Signs Temp 98.4 F 06/22/24 08:27 Pulse 78 06/23/24 06:30 Resp 16 06/23/24 06:30 BP 107/80 06/23/24 06:30 Pulse Ox 97 06/23/24 06:30 FiO2 Intake & Output 06/22/24 06/23/24 06/23/24 18:59 06:59 18:59 Intake Total 64.664 51.527 Balance 64.664 51.527 Intake: Intake, IV Titration 64.664 51.527 Amount Heparin Sod,Pork in 0.45% 64.664 51.527 NaCl 25,000 unit In 0.45 % NaCl 1 250ml.bag @ 8.48 UNITS/KG/HR 10.006 mls/ hr IV .Q24H [facility] Rx#: [id number] - Labs CBC & Chem 7: 06/23/24 05:54 06/23/24 05:54 Labs: Abnormal Lab Results - Last 24 Hours (Table) 06/22/24 06/22/24 06/22/24 Range/Units 01:30 08:31 10:45 PT 20.5 H (10.0-12.5) sec INR 2.0 H (<1.2) APTT 195.5 H* (22.0-30.0) sec Creatinine 1.30 H (0.52-1.04) mg/dL Glucose 102 H (74-99) mg/dL 06/22/24 06/23/24 Range/Units 17:59 05:54 PT 14.8 H (10.0-12.5) sec INR 1.4 H (<1.2) APTT 40.4 H (22.0-30.0) sec Creatinine (0.52-1.04) mg/dL Glucose (74-99) mg/dL
[2024-06-23] MEDS: ATORVASTATIN 80 MG TAB PO STA (10:24)
[2024-06-23] MEDS: ASPIRIN 325 MG TAB PO STA (10:24)
[2024-06-23] MEDS: HEPARIN SODIUM,PORCINE (1 ML) 2,500 UNIT in SODIUM CHLORIDE 0.9% 250 ML IRRIGATION PRN (15:24)
[2024-06-23] MEDS: HEPARIN SODIUM,PORCINE 10,000 UNIT in SODIUM CHLORIDE 0.9% 1,000 ML IRRIGATION PRN (15:24)
[2024-06-23] MEDS: IV FLUID CONTINUATION 1,000 ML IV ONE (15:24)
[2024-06-23] MEDS: fentaNYL (PF) 50 MCG/ML 2 ML AMP IVP ONE (15:43)
[2024-06-23] MEDS: MIDAZOLAM 2 MG/2 ML VIAL IVP ONE (15:43)
[2024-06-23] MEDS: LIDOCAINE 1% INJ 10MG/ML (20 ML MDV) SQ ONE (15:45)
[2024-06-23] MEDS: VERAPAMIL SYRINGE (5 MG/10 ML) INTRAARTER ONE (15:46)
[2024-06-23] MEDS: IOPAMIDOL-370 100ML BTL INJ ONE ×2 (15:57)
--- NOTE | 2024-06-23 21:07 | P.CARDCATH ---
Description of Procedure: PROCEDURES PERFORMED: Left heart catheterization, bilateral coronary angiography, ultrasound guided arterial access INDICATION: NSTEMI CONSENT:I have discussed the risks, benefits and alternative therapies for the above-mentioned procedure and for both sedation/analgesia as well as necessary blood product administration, if indicated, as they pertain to this patient. The patient has indicated understanding and acceptance of the risks and procedures discussed. PROCEDURE: After the risks, benefits and alternatives of the above mentioned procedure explained in detail with the patient, informed consent was obtained. Patient was taken to the catheterization lab and prepped and draped in usual fashion. Ultrasound guidance was used to assess for arterial access. 1% lidocaine was used to anesthetize the right radial artery. A 6-Micronesian sheath was placed in the right radial artery using modified Seldinger technique and ultrasound guidance. Left coronary angiography was performed with a 5-Micronesian JL 3.5 catheter and right coronary angiography was performed with a 5-Micronesian AR2 catheter in various views. A 5-Micronesian AR2 catheter was inserted into the left ventricle and pressure measurements were obtained. The right radial sheath was removed and a TR band was placed with hemostasis achieved. The patient tolerated the procedure well. Patient was transported back to the post catheterization holding area in stable condition. Conscious Sedation: Patient was monitored under the direct supervision of myself for conscious sedation using Versed and fentanyl for a total duration of 16 minutes HEMODYNAMICS: Ao: 143/71 LV: 133/10, LVEDP 17 SELECTIVE CORONARY ARTERIOGRAPHY: LEFT MAIN: The left main is a large caliber vessel which bifurcates into the LAD and circumflex. There is no significant stenosis. LEFT ANTERIOR DESCENDING CORONARY ARTERY: LAD is a large caliber vessel which wraps around to the apex. There is no significant stenosis. LEFT CIRCUMFLEX CORONARY ARTERY: Left circumflex is a moderate caliber vessel without significant stenosis. RIGHT CORONARY ARTERY: The right coronary artery is a large caliber vessel which gives off a PDA and PLV branch and is the dominant vessel. There is no significant stenosis. FINAL IMPRESSION: 1. Normal coronary arteries as described above. 2. High normal left sided filling pressures PLAN: 1. Aggressive risk factor modification per most recent ACC/AHA guidelines. 2. Follow-up in the office in 1-2 weeks.
--- NOTE | 2024-06-23 21:10 | P.PN ---
Subjective Progress Note Date: 06/23/24 This is a pleasant 83-year-old female medical history significant for CVA, DVT, hypertension, pacemaker defibrillator implanted in November 2011, Former smoker. Comes into the hospital with complaints of chest pain that hat been per the patient coming and going for the last 3 to 4 months. Patient states the pain is not associated with food and she is not having any shortness of breath, dizziness or lightheadedness. Currently she is chest pain free. Patient was transferred down from [facility]. She follows with Dr. Pierce on an outpatient basis, is supposed to have a generator change in the next 2 weeks. While at [facility] patient did have a positive troponin level and was transferred for further cardiac evaluation. Initial EKG reveals sinus rhythm. Patient does have a left bundle branch block. Heart rate of 72. CBC is completely unremarkable, sodium level of 137 BUN of 15 creatinine 1.26, lactic acid of 2.1 patient does have elevation of her troponin level 0.448 and 0.451. lipid panel unremarkable. Patient was started on IV heparin protocol and cardiology consultation in place. She does take warfarin on any outpatient basis for history of DVT. Patient is a poor historian. 06/23/2024 Patient is evaluated today in follow up in the ER remains holding for bed on the stepdown unit. Continues to report intermittent chest discomfort. Outside reports reviewed and patient has EF of 20% with history of dilated nonischemic cardiomyopathy. Patient will be going for cardiac catheterization today. Family and patient are asking about a generator change while patient is admitted here. She follows with Dr Nugent. INR today is 1.4 patient remains on IV heparin, warfarin is held. REVIEW OF SYSTEMS: CONSTITUTIONAL: No fever, no malaise, no fatigue. HEENT: No recent visual problems or hearing problems. Denied any sore throat. CARDIOVASCULAR: No chest pain, orthopnea, PND, no palpitations, no syncope. PULMONARY: No shortness of breath, no cough, no hemoptysis. GASTROINTESTINAL: No diarrhea, no nausea, no vomiting, no abdominal pain. NEUROLOGICAL: No headaches, no weakness, no numbness. PHYSICAL EXAMINATION: GENERAL: The patient is alert and oriented x3, not in any acute distress. Well developed, well nourished. HEENT: Pupils are round and equally reacting to light. EOMI. No scleral icterus. No conjunctival pallor. Normocephalic, atraumatic. No pharyngeal erythema. No thyromegaly. CARDIOVASCULAR: S1 and S2 present. No murmurs, rubs, or gallops. PULMONARY: Chest is clear to auscultation, no wheezing or crackles. ABDOMEN: Soft, nontender, nondistended, normoactive bowel sounds. No palpable organomegaly. MUSCULOSKELETAL: No joint swelling or deformity. EXTREMITIES: No cyanosis, clubbing, or pedal edema. NEUROLOGICAL: Gross neurological examination did not reveal any focal deficits. SKIN: No rashes. Assessment and plan Acute chest pain Non-ST elevation AK with troponin elevation Mild acute kidney injury with history of CKD stage IIIB Hx dilated nonischemic cardiomyopathy with EF 20% History of hypertension History of DVT anticoagulated with warfarin on an outpatient basis which is currently held patient is continued on IV heparin at this time History of pacemaker/AICD History of stroke in the past GI prophylaxis DVT prophylaxis IV heparin Plan Cardiac consultation Pending cardiac catheterization Continue IV heparin, continue holding warfarin Home medications have been resumed Monitor renal function. The impression and plan of care has been dictated by Ivania Hyatt Nurse Practitioner as directed. Dr. Vic MD I have performed a history and physical examination and medical decision making of this patient, discussed the same with the dictator, and agree with the dictators assessment and plan as written, documented as a scribe. Based on total visit time, I have performed more than 50% of this visit. Objective - Vital Signs Vital signs: Vital Signs Temp 97.9 F 06/23/24 17:48 Pulse 60 06/23/24 18:19 Resp 18 06/23/24 18:19 BP 113/70 06/23/24 18:19 Pulse Ox 98 06/23/24 18:19 FiO2 Intake & Output 06/23/24 06/23/24 06/24/24 06:59 18:59 06:59 Intake Total 51.527 391 Balance 51.527 391 Weight 57.606 kg Intake: IV 211 Invasive Line 2 10 Intake, IV Titration 51.527 Amount Heparin Sod,Pork in 0.45% 51.527 NaCl 25,000 unit In 0.45 % NaCl 1 250ml.bag @ 8.48 UNITS/KG/HR 10.006 mls/ hr IV .Q24H [facility] Rx#: [id number] Oral 180 Other: # Voids 1 # Bowel Movements 1 - Labs CBC & Chem 7: 06/23/24 05:54 06/23/24 05:54 Labs: Abnormal Lab Results - Last 24 Hours (Table) 06/23/24 06/23/24 Range/Units 05:54 05:54 PT 14.8 H (10.0-12.5) sec INR 1.4 H (<1.2) Chloride 108 H (98-107) mmol/L Creatinine 1.13 H (0.52-1.04) mg/dL Assessment and Plan Time with Patient: Less than 30
[2024-06-23] MEDS: ZOLPIDEM 5 MG TAB PO PRN (21:44)
[2024-06-24 08:25] LABS: Mean Platelet Volume 7.5; Platelet Count 346 k/uL (150-450)
[2024-06-24 09:38] VITALS: TEMP 97.9
[2024-06-24] MEDS: LOPERAMIDE 2 MG CAP PO PRN (10:09)
[2024-06-24] MEDS: ALPRAZolam 0.5 MG TAB PO PRN (10:11)
--- NOTE | 2024-06-24 11:04 | CA ---
Transthoracic Echo Report Name: Vickie Lopez Age: 83 Gender: F : 1940 Exam Date: 06/23/2024 14:06 Exam Location: [place] [facility] Ht (in): 60 Wt (lb): 127 Ordering Physician: Lelo Rose Attending/Referring Phys: [id number], [place] Room Service Associate Marika Arciniega RDCS Procedure CPT: Indications: nstemi Cardiac Hx: Pacemaker Technical Quality: Good Contrast 1: Definity Total Dose (mL): 2 Contrast 2: Total Dose (mL): MEASUREMENTS (Male / Female) Normal Values 2D ECHO LV Diastolic Diameter PLAX 6.5 cm 4.2 - 5.9 / 3.9 - 5.3 cm LV Systolic Diameter PLAX 6.1 cm IVS Diastolic Thickness 0.9 cm 0.6 - 1.0 / 0.6 - 0.9 cm LVPW Diastolic Thickness 0.9 cm 0.6 - 1.0 / 0.6 - 0.9 cm LV Relative Wall Thickness 0.3 RV Internal Dim ED PLAX 1.8 cm LA Systolic Diameter LX 4.6 cm 3.0 - 4.0 / 2.7 - 3.8 cm LV Diastolic Volume MOD 4C 132.2 cm??? LV Systolic Volume MOD 4C 103.7 cm??? LV Ejection Fraction MOD 4C 21.5 % LV Cardiac Index MOD 4C 1229.3 cm???/min???m??? LV Diastolic Length 4C 7.5 cm LV Systolic Length 4C 7.3 cm M-MODE Aortic Root Diameter MM 3.1 cm LA Systolic Diameter MM 4.7 cm LA Ao Ratio MM 1.5 AV Cusp Separation MM 1.9 cm DOPPLER AI Peak Velocity 272.5 cm/s AI Peak Gradient 29.7 mmHg AI Pressure Half Time 622.6 ms MV Area PHT 3.4 cm??? Mitral E Point Velocity 112.8 cm/s Mitral A Point Velocity 54.0 cm/s Mitral E to A Ratio 2.1 MV Deceleration Time 224.1 ms TR Peak Velocity 358.4 cm/s TR Peak Gradient 51.4 mmHg FINDINGS Left Ventricle Left ventricular ejection fraction is estimated at 10-15 %. Severely increased left ventricular diastolic diameter. Severely reduced global left ventricular systolic function. Left ventricular wall thickness normal. Right Ventricle Normal right ventricular size and function. Moderate to severe pulmonary hypertension. Right Atrium Mild right atrial dilatation. Catheter/pacemaker wire in the right atrial cavity. Left Atrium Moderately increased left atrial diameter. Mildly increased left atrial area. Mitral Valve Mitral valve thickened. Mitral annular calcification. Severe mitral regurgitation. No mitral stenosis. Aortic Valve Trileaflet aortic valve. No aortic stenosis. Mild aortic regurgitation. Diffuse thickening (sclerosis) of the aortic valve cusps without reduced excursion. Tricuspid Valve Structurally normal tricuspid valve. Moderate tricuspid regurgitation. No tricuspid stenosis. Pulmonic Valve Structurally normal pulmonic valve. Trace pulmonic regurgitation. No pulmonic stenosis. Pericardium No pericardial or pleural effusion. Aorta Normal size aortic root and proximal ascending aorta. CONCLUSIONS LVEF 10 to 15% Severely dilated LV cavity with severely reduced global LV systolic function Paradoxical septal motion PPM wire noticed in RA and RV Severe mitral regurgitation Mild aortic regurgitation Moderate tricuspid regurgitation Previewed by: Dr Inocencio Edwards (Electronically Signed) Final Date: 24 June 2024 11:03
[2024-06-24 11:48] VITALS: BP 108/56; PULSE 64; RESP 16
--- NOTE | 2024-06-25 14:09 | P.PN ---
Subjective Progress Note Date: 06/24/24 Reason for Consult (text): NSTEMI History of present illness: This is an 83-year-old female patient of Dr.Gassan Ortega in [place] with past medical history of DVT on Coumadin, status post pacemaker implantation, hypertension, dementia, remote history of tobacco use. We have been asked to evaluate the patient for NSTEMI. Patient states that she has had these brief episodes of chest pain that only last for few seconds to a minute but seem to be happening more frequently. When the pain is severe it is a 7/10. She states that her made her come into the emergency center in [place] to be checked. Patient had an elevated troponin of 406 with normal range less than 51 and thus patient was transferred to [facility] for further evaluation. Other lab work performed at [facility] was BUN 14, creatinine 1.58. EKG was a sinus rhythm with a left bundle branch block. Chest x-ray was negative for acute findings. Patient was started on a heparin drip which has been continued. Patient denies having a previous stress test. She believes she had a stroke about 10 years ago. Patient gives history that her pacemaker is at end-of-life. This was placed 10 years ago and she was post to have the generator changed on this week. -EKG: Sinus rhythm with left bundle branch block -Laboratory studies: BUN 15 and creatinine 1.26. Troponins 0.448 and 0.451. -Home cardiac medications: Lasix 20 mg twice daily, potassium 10 mill equivalents 3 times daily, Coreg 3.125 mg twice daily, warfarin 3 mg daily. Records from patient's commissioned sales associate have been obtained and reviewed. 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 History of moderate pulmonary hypertension and chronic kidney disease stage IIIb. Apparently patient was supposed to have her battery change done at [facility], [place], operated by [facility] last week but because her INR was 2.7, the procedure was rescheduled. 06/23 Patient is seen and examined in the emergency center waiting for a bed on the cardiac stepdown unit. Records from her commissioned sales associate office have been reviewed. Patient has been kept n.p.o. for possible cardiac catheterization today with Dr. aGrcia. ICD interrogation apparently found no battery life. Patient remains on a heparin drip. Blood pressure 107/80, heart rate 78, pulse ox 97% on room air. Repeat blood work reveals INR of 1.4, sodium 138, BUN 15, creatinine 1.13 and potassium 4. Patient denies chest pain. Dr Garcia discussed with patient and her daughter recommendations for cardiac cath and they are agreeable to move forward with this today. Echocardiogram is pending. 06/24 Patient seen and examined on the cardiac stepdown floor. Yesterday, she underwent cardiac catheterization which revealed normal coronary arteries and high normal left sided filling pressures. Plan is for aggressive risk factor modification per most recent ACC/AHA guidelines. Echocardiogram reviewed with patient and her daughter. With concern for stress-induced cardiomyopathy or could be viral myocarditis. Patient states that she has been under a lot of stress because her stepdaughter recently passed. Blood pressure 106/66, heart rate 68, pulse ox 96% on room air. Echocardiogram reveals EF of 10 to 15%, severely dilated LV cavity and severely reduced global LV systolic function. Paradoxical septal motion. Pacemaker wire in the RA and RV. Severe mitral regurgitation, mild aortic regurgitation, moderate tricuspid regurgitation. Physical examination: Gen: This is a 83-year-old female in no acute distress VS: reviewed HEENT: Head is atraumatic, normocephalic. Pupils equal, round. Sclerae is anicteric. NECK: Supple. No JVD. LUNGS: Clear to auscultation. No wheezes or rhonchi. No intercostal retractions . HEART: Regular rate and rhythm. No murmur. Pacemaker to left upper anterior chest wall with tenderness which she states has been chronic. ABDOMEN: Soft No tenderness. EXTREMITIES: No pedal edema. No calf tenderness. NEUROLOGICAL: Patient is awake, alert and oriented x3. Assessment: NSTEMI Acute kidney injury, improving History of ICD implantation at reported end-of-life battery History of upper and lower extremity DVTs on Coumadin Hypertension Dilated nonischemic cardiomyopathy Chronic systolic heart failure with known EF of 20% in September 2022 Plan: Continue patient's home cardiac medications Patient will follow-up with her primary commissioned sales associate Patient is cleared for discharge from cardiology perspective. Nurse practitioner note has been reviewed, I agree with documented findings and plan of care. Patient was seen and examined. Objective - Vital Signs Vital signs: Vital Signs Temp 97.9 F 06/24/24 09:32 Pulse 64 06/24/24 11:47 Resp 16 06/24/24 11:47 BP 108/56 06/24/24 11:47 Pulse Ox 96 06/24/24 11:47 FiO2 Intake & Output 06/23/24 06/24/24 06/24/24 18:59 06:59 18:59 Intake Total 391 20 420 Balance 391 20 420 Weight 57.606 kg 59.1 kg Intake: IV 211 20 20 Invasive Line 2 10 20 20 Oral 180 400 Other: Voiding Method Toilet Toilet # Voids 2 # Bowel Movements 1 - Labs CBC & Chem 7: 06/24/24 07:44 06/23/24 05:54
--- NOTE | 2024-06-26 21:20 | P.DS ---
Providers Date of admission: 06/21/24 22:39 Attending physician: Bisi Weiner Consults: 06/21/24 22:36 Consult Physician Routine Consulting Provider: Joseph Garcia Consult Reason/Comments: NSTEMI Do you want consulting provider notified?: Yes Primary care physician: Monica James MD Hospital Course: Final Diagnosis Acute chest pain Non-ST elevation AL with troponin elevation Mild acute kidney injury with history of CKD stage IIIB Hx dilated nonischemic cardiomyopathy with EF 20% History of hypertension History of DVT anticoagulated with warfarin on an outpatient basis History of pacemaker/AICD History of stroke in the past GI prophylaxis DVT prophylaxis IV heparin Discharge Disposition Stable for discharge home patient to follow up closely with Dr Nugent to further discuss generator change. Patient has been resumed on warfarin. She is currently chest pain free. Hospital Course This is a pleasant 83-year-old female medical history significant for CVA, DVT, hypertension, pacemaker defibrillator implanted in November 2011, Former smoker. Comes into the hospital with complaints of chest pain that hat been per the patient coming and going for the last 3 to 4 months. Patient states the pain is not associated with food and she is not having any shortness of breath, dizziness or lightheadedness. Currently she is chest pain free. Patient was transferred down from [facility]. She follows with Dr. Pierce on an outpatient basis, is supposed to have a generator change in the next 2 weeks. While at [facility] patient did have a positive troponin level and was transferred for further cardiac evaluation. Initial EKG reveals sinus rhythm. Patient does have a left bundle branch block. Heart rate of 72. CBC is completely unremarkable, sodium level of 137 BUN of 15 creatinine 1.26, lactic acid of 2.1 patient does have elevation of her troponin level 0.448 and 0.451. lipid panel unremarkable. Patient was started on IV heparin protocol and cardiology consultation in place. She does take warfarin on any outpatient basis for history of DVT. Patient is a poor historian. Outside reports reviewed and patient has EF of 20% with history of dilated nonischemic cardiomyopathy. Family and patient are asking about a generator change while patient is admitted here. She follows with Dr Nugent. Warfarin was held patient is on IV heparin. Patient went for cardiac catheterization which reveals normal coronaries. Her chest pain is gone. She will follow up with her main shift commander and has an appt scheduled for July 06. Please see medication reconciliation for a list of current medications. Thank you for allowing us to participate in the care of this patient. The impression and plan of care has been dictated by Nurse Rufina Delatorre ctitioner as directed. Dr. Vic MD I have performed a history and physical examination and medical decision making of this patient, discussed the same with the dictator, and agree with the dictat ors assessment and plan as written, documented as a scribe. Based on total visit time, I have performed more than 50% of this visit. Patient Condition at Discharge: Stable Plan - Discharge Summary Discharge Rx Participant: Yes New Discharge Prescriptions: New Loperamide [Imodium] 2 mg PO QID PRN cap PRN Reason: Diarrhea Continue Donepezil [Aricept] 5 mg PO HS Warfarin [Coumadin] 3 mg PO HS Citalopram Hydrobromide [CeleXA] 20 mg PO DAILY Furosemide [Lasix] 20 mg PO BID ALPRAZolam [Xanax] 0.5 mg PO BID PRN PRN Reason: Anxiety Azelastine HCl [Astelin Nasal Republic] 1 spr EA NOSTRIL BID Montelukast [Singulair] 10 mg PO DAILY Zolpidem [Ambien] 10 mg PO HS Warfarin [Coumadin] 1 mg PO HS HYDROcodone/APAP 5-325MG [[place] 5-325] 1 tab PO TID PRN PRN Reason: Pain Cyanocobalamin (Vitamin B-12) [Vitamin B-12] 1,000 mcg PO HS Potassium Chloride ER [K-Dur 10] 10 meq PO TID Alendronate Sodium 70 mg PO WEEKLY traMADol HCL 50 mg PO TID PRN PRN Reason: Pain carvediloL [Coreg] 3.125 mg PO BID Omeprazole [PriLOSEC] 20 mg PO BID Betamethasone Valerate [Luxiq 0.1%] 1 applic TOPICAL BID PRN PRN Reason: Skin Irritation Vitamin D(Unknown Dose) 1 tab PO DAILY Discharge Medication List ALPRAZolam [Xanax] 0.5 mg PO BID PRN 06/22/24 [History] Alendronate Sodium 70 mg PO WEEKLY 06/22/24 [History] Azelastine HCl [Astelin Nasal Republic] 1 spr EA NOSTRIL BID 06/22/24 [History] Betamethasone Valerate [Luxiq 0.1%] 1 applic TOPICAL BID PRN 06/22/24 [History] Citalopram Hydrobromide [CeleXA] 20 mg PO DAILY 06/22/24 [History] Cyanocobalamin (Vitamin B-12) [Vitamin B-12] 1,000 mcg PO HS 06/22/24 [History] Donepezil [Aricept] 5 mg PO HS 06/22/24 [History] Furosemide [Lasix] 20 mg PO BID 06/22/24 [History] HYDROcodone/APAP 5-325MG [[place] 5-325] 1 tab PO TID PRN 06/22/24 [History] Montelukast [Singulair] 10 mg PO DAILY 06/22/24 [History] Omeprazole [PriLOSEC] 20 mg PO BID 06/22/24 [History] Potassium Chloride ER [K-Dur 10] 10 meq PO TID 06/22/24 [History] Vitamin D(Unknown Dose) 1 tab PO DAILY 06/22/24 [History] Warfarin [Coumadin] 1 mg PO HS 06/22/24 [History] Warfarin [Coumadin] 3 mg PO HS 06/22/24 [History] Zolpidem [Ambien] 10 mg PO HS 06/22/24 [History] carvediloL [Coreg] 3.125 mg PO BID 06/22/24 [History] traMADol HCL 50 mg PO TID PRN 06/22/24 [History] Loperamide [Imodium] 2 mg PO QID PRN cap 06/24/24 [Rx] Follow up Appointment(s)/Referral(s): [facility] [NON-STAFF] - [facility] [REFERRING] - 1-2 days Patient Instructions/Handouts: Dilated Cardiomyopathy (DC), Low-Sodium Diet (DC), After Radial Heart Catheterization (GEN) Activity/Diet/Wound Care/Special Instructions: Follow up with Dr. Nugent keep your scheduled appointment July 06. Discharge Disposition: HOME SELF-CARE
== END 2024-06-24 13:49 | disposition home or self-care (01) | DRG 281 ==
LOC: EC 22:05 → 3SCARD 22:39
PROVIDERS: ADMIT Hospitalist; ATTEND Hospitalist
PROC: B2111ZZ Fluoroscopy of Multiple Coronary Arteries using Low Osmolar Contrast (ICD-10-PCS; 2024-06-23)
PROC: B2151ZZ Fluoroscopy of Left Heart using Low Osmolar Contrast (ICD-10-PCS; 2024-06-23)
PROC: 4A023N7 Measurement of Cardiac Sampling and Pressure, Left Heart, Percutaneous Approach (ICD-10-PCS; principal; 2024-06-23 15:45)
DX: I21.4 Non-ST elevation (NSTEMI) myocardial infarction (principal); I13.0 Hypertensive heart and chronic kidney disease with heart failure and stage 1 through stage 4 chronic kidney disease, or unspecified chronic kidney disease; I42.0 Dilated cardiomyopathy; I27.20 Pulmonary hypertension, unspecified; N18.32 Chronic kidney disease, stage 3b; F03.90 Unspecified dementia, unspecified severity, without behavioral disturbance, psychotic disturbance, mood disturbance, and anxiety; I50.22 Chronic systolic (congestive) heart failure; N17.9 Acute kidney failure, unspecified; I44.7 Left bundle-branch block, unspecified; I10 Essential (primary) hypertension; Z87.891 Personal history of nicotine dependence; Z79.01 Long term (current) use of anticoagulants; Z86.718 Personal history of other venous thrombosis and embolism; Z86.73 Personal history of transient ischemic attack (TIA), and cerebral infarction without residual deficits; Z95.810 Presence of automatic (implantable) cardiac defibrillator; Z86.74 Personal history of sudden cardiac arrest; Z79.899 Other long term (current) drug therapy
CPT/HCPCS: 51798; 80048; 80061; 83605; 83735; 84484; 85025; 85049; 85610; 85730; 93005; 93306; 93458; 96361; 96365; 96366; 99291